=== PATIENT | male | born 1980 | race Caucasian/White ===

== ENCOUNTER 2016-11-11 16:19 | Emergency (ER) | payer OTHER, MEDICAID ==
[2016-11-11 16:31] VITALS: TEMP 98.4
--- NOTE | 2016-11-11 17:07 | CPEKG ---
Heart Rate: 72 RR Interval: 833 P-R Interval: 184 QRSD Interval: 96 QT Interval: 376 QTC Interval: 412 P [place]: 16 QRS [place]: 14 T Wave [place]: 21 EKG Severity - NORMAL ECG - EKG Impression: SINUS RHYTHM Preliminary Awaiting MD Review
[2016-11-11 18:01] VITALS: BP 110/80; PULSE 78; RESP 18; O2SAT 98
[2016-11-11 18:12] LABS: % IMMATURE GRANULYOCYTES 0.4 % (0.0-1.1); ABSOLUTE IMMATURE GRANULOCYTES 0.03 10^3/uL (0.00-0.10); ADD DIFF? NO; ADD MORPH? NO; ADD SCAN? NO; ATYPICAL LYMPHOCYTE FLAG 20 (0-99); FRAGMENT RBC FLAG 10 (0-99); HEMATOCRIT 44.8 % (40.0-51.0); HEMOGLOBIN 15.3 g/dL (13.7-17.5); LEFT SHIFT FLG 0 (0-99); LIPEMIA HEMOLYSIS FLAG 90 (0-99); MEAN CELL HEMOGLOBIN 31.5 pg (27.9-34.1); MEAN CELL HEMOGLOBIN CONCENTR. 34.2 g/dL (32.4-36.7); MEAN CELL VOLUME 92.2 fL (81.5-99.8); MEAN PLATELET VOLUME 10.5 fL (8.7-11.7); PLATELET CLUMPS FLAG 10 (0-99); PLATELET COUNT 220 10^3/uL (150-400); RED BLOOD CELL COUNT 4.86 10^6/uL (4.40-6.38); RED CELL DISTRIBUTION WIDTH 13.4 % (11.5-15.2)
[2016-11-11 18:20] LABS: ANION GAP 12 mEq/L (8-16); CALCIUM 9.3 mg/dL (8.5-10.4); CARBON DIOXIDE 29 mEq/l (22-31); CHLORIDE 98 mEq/L (97-110); CREATININE 0.9 mg/dL (0.7-1.3); GLOMERULAR FILTRATION RATE > 60; GLUCOSE 85 mg/dL (70-100); MAGNESIUM 2.1 mg/dL (1.6-2.3); POTASSIUM 4.7 mEq/L (3.5-5.2); SODIUM 139 mEq/L (134-144)
[2016-11-11 18:32] LABS: TROPONIN I 0.014 ng/mL (0-0.034)
--- NOTE | 2016-11-11 18:32 | DX ---
Chest, PA Upright and Lateral Views, at 5:52 p.m. Clinical History: 36-year-old male with dyspnea and a rapid heart rate. Comparison Study: Chest, dated October 28, 2016. Findings: Telemetry monitoring lead lines are present. There is a mild mid-dextrothoracic scoliosis. 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 Th e cardiac and mediastinal silhouette is normal in size. There is no focal infiltrate, atelectasis, pl eural effusion, peripheral interstitial edema, or pneumothorax. There are some small degenerative ost eophytes associated with the thoracic spine, and a mild ventral wedging deformity at the thoracolumba r junction. The patient's arms obscure portions of the anterior and central mediastinal structures on the lateral view. Impression: Radiographically similar to October 28, 2016.
--- NOTE | 2016-11-11 18:57 | EDPHY ---
H & P Stated Complaint: Abdnormal pulse earlier today Time Seen by Provider: 11/11/16 17:31 HPI/ROS: Chief complaint: Abnormal pulse History of present illness: This is a 36-year-old male who presents to the emergency department reporting an abnormal pulse earlier today. Patient states after drinking approximately 40 oz of coffee he was sitting and eating at [employer] when his heart started to beat harder than usual. He does not feel like it was beating faster than usual it was just beating harder than usual. It only lasted for approximately a minute and then resolved. He denies associated signs or symptoms including no chest pain, no shortness of breath, no cough, no pain or swelling in his legs, no fevers or cold-like symptoms. Review of systems: A 10 point review of systems was obtained and other than described above was negative - Personal History Current Tetanus/Diphtheria Vaccine: Yes Current Tetanus Diphtheria and Acellular Pertussis (TDAP): Yes Tetanus Vaccine Date: 2012 - Medical/Surgical History Hx Asthma: No Hx Chronic Respiratory Disease: No Hx Diabetes: No Hx Cardiac Disease: No Hx Renal Disease: No Hx Cirrhosis: No Hx Alcoholism: No Hx HIV/AIDS: No Hx Splenectomy or Spleen Trauma: No Other PMH: hepatitis c, szchizo affective, bipolar, chronic pain secondary to BCA. HEP-C (recently completed treatment 09/11/16) - Social History Smoking Status: Current some day smoker - Physical Exam Exam: General Appearance: Alert, nontoxic. Eyes: Pupils equal and round no pallor or injection. ENT, Mouth: Mucous membranes moist. Respiratory: There are no retractions, lungs are clear to auscultation. Cardiovascular: Regular rate and rhythm. Gastrointestinal: Abdomen is soft and non tender, no masses, bowel sounds normal. Neurological: Alert. Strength and sensation intact and symmetrical. Skin: Warm and dry, no rashes. Musculoskeletal: Neck is supple non tender. Extremities are symmetrical, there is no edema to the lower extremities, full range of motion. Psychiatric: There is no agitation. Constitutional: Initial Vital Signs Temperature (C) 36.9 C 11/11/16 16:29 Heart Rate 90 11/11/16 16:29 Respiratory Rate 14 11/11/16 16:29 Blood Pressure 120/99 H 11/11/16 16:29 O2 Sat (%) 97 11/11/16 16:29 O2 Delivery Mode Room Air Allergies/Adverse Reactions: ziprasidone HCl [From Geodon] Allergy (Verified 11/11/16 16:28) ziprasidone mesylate [From Geodon] Allergy (Verified 11/11/16 16:28) Home Medications: Medication Instructions Recorded Oxycontin 09/11/16 Vyvanse 09/11/16 Sulfamethox/Tmp 800/160 mg 1 tab PO BID #14 tab 10/18/16 [Bactrim Ds] Albuterol Hfa Anes Only [Proair 2 puffs IH QID PRN #1 mdi 10/28/16 Hfa Anes Only] Azithromycin [Zithromax 250 mg 250 mg PO DAILY #6 tab 10/28/16 tab(RX)] Medical Decision Making - Diagnostics Imaging: Chest x-ray negative for acute findings ED Course/Re-evaluation: Patient discussed with my secondary supervising physician Dr. Berhane White. Patient presents to the emergency department after having a short episode of his heart beating harder than usual today. On presentation patient reports he is asymptomatic. He is afebrile and vital signs are stable. EKG, blood studies and chest x-ray unremarkable. Patient will be discharged home. Home care is discussed. He is referred to Cardiology for recheck. Return precautions are given. Patient voiced understanding and agreement with plan. Differential Diagnosis: Included but not limited to stimulation from substances such as caffeine, anxiety, electrolyte disturbances, cardiac dysrhythmias, unlikely ACS or PE - Data Points Laboratory Results: Laboratory Results 11/11/16 17:50 11/11/16 17:50 11/11/16 17:50 WBC 7.53 10^3/uL (3.80-9.50) RBC 4.86 10^6/uL (4.40-6.38) Hgb 15.3 g/dL (13.7-17.5) Hct 44.8 % (40.0-51.0) MCV 92.2 fL (81.5-99.8) MCH 31.5 pg (27.9-34.1) MCHC 34.2 g/dL (32.4-36.7) RDW 13.4 % (11.5-15.2) Plt Count 220 10^3/uL (150-400) MPV 10.5 fL (8.7-11.7) Neut % (Auto) 61.7 % (39.3-74.2) Lymph % (Auto) 22.6 % (15.0-45.0) [place] % (Auto) 10.0 % (4.5-13.0) Eos % (Auto) 4.5 % (0.6-7.6) Baso % (Auto) 0.8 % (0.3-1.7) Nucleat RBC Rel Count 0.0 % (0.0-0.2) Absolute Neuts (auto) 4.65 10^3/uL (1.70-6.50) Absolute Lymphs (auto) 1.70 10^3/uL (1.00-3.00) Absolute Monos (auto) 0.75 10^3/uL (0.30-0.80) Absolute Eos (auto) 0.34 10^3/uL (0.03-0.40) Absolute Basos (auto) 0.06 10^3/uL (0.02-0.10) Absolute Nucleated RBC 0.00 10^3/uL (0-0.01) Immature Gran % 0.4 % (0.0-1.1) Immature Gran # 0.03 10^3/uL (0.00-0.10) Sodium 139 mEq/L (134-144) Potassium 4.7 mEq/L (3.5-5.2) Chloride 98 mEq/L (97-110) Carbon Dioxide 29 mEq/l (22-31) Anion Gap 12 mEq/L (8-16) BUN 13 mg/dL (7-23) Creatinine 0.9 mg/dL (0.7-1.3) Estimated GFR > 60 Glucose 85 mg/dL (70-100) Calcium 9.3 mg/dL (8.5-10.4) Magnesium 2.1 mg/dL (1.6-2.3) Troponin I 0.014 ng/mL (0-0.034) TSH 1.240 uIU/mL (0.465-4.680) Departure - Departure Disposition: Home, Routine, Self-Care Clinical Impression: Palpitations Condition: Good Instructions: Palpitations (ED) Additional Instructions: Follow-up with Cardiology for continued evaluation and care If symptoms worsen or new symptoms develop return to the emergency department for recheck Referrals: Maddi Carr [Primary Care Provider] - As per Instructions Cesar Perry MD [Medical Doctor] - As per Instructions
== END 2016-11-11 19:22 | disposition home or self-care (01) ==
DX: R00.2 Palpitations (principal); F17.200 Nicotine dependence, unspecified, uncomplicated

== ENCOUNTER → 2016-12-14 | Outpatient (CLI) | payer OTHER, MEDICAID | LOC: BHFA 10:00 | PROVIDERS: ATTEND Internal Medicine Cardiovascular Disease | DX: R00.2 Palpitations (principal); R06.02 Shortness of breath ==

== ENCOUNTER 2017-06-03 15:56 | Emergency (ER) | payer OTHER, MEDICAID ==
[2017-06-03 16:02] VITALS: BP 165/83; PULSE 93; RESP 17; TEMP 98.6; O2SAT 95
--- NOTE | 2017-06-03 16:22 | EDPHY ---
H & P Stated Complaint: redness/erythema l upper arm x 5 days Time Seen by Provider: 06/03/17 16:13 - Personal History Current Tetanus/Diphtheria Vaccine: Yes Tetanus Vaccine Date: 2012 - Medical/Surgical History Hx Asthma: No Hx Chronic Respiratory Disease: No Hx Diabetes: No Hx Cardiac Disease: No Hx Renal Disease: No Hx Cirrhosis: No Hx Alcoholism: No Hx HIV/AIDS: No Hx Splenectomy or Spleen Trauma: No Other PMH: hepatitis c, szchizo affective, bipolar, chronic pain secondary to BCA. HEP-C (recently completed treatment 09/11/16) - Social History Smoking Status: Current some day smoker Constitutional: Initial Vital Signs Temperature (C) 37 C 06/03/17 16:00 Heart Rate 93 06/03/17 16:00 Respiratory Rate 17 06/03/17 16:00 Blood Pressure 165/83 H 06/03/17 16:00 O2 Sat (%) 95 06/03/17 16:00 O2 Delivery Mode Room Air Allergies/Adverse Reactions: ziprasidone HCl [From Geodon] Allergy (Verified 06/03/17 15:59) ziprasidone mesylate [From Geodon] Allergy (Verified 06/03/17 15:59) Home Medications: Medication Instructions Recorded Vyvanse 09/11/16 Oxycodone HCl 06/03/17 Medical Decision Making ED Course/Re-evaluation: CHIEF COMPLAINT: Left arm erythema and pain. HISTORY OF PRESENT ILLNESS: The patient is a 36-year-old male who presents with left arm erythema and pain. He works in [employer] and reports he was probably bitten by an insect. He denies chills, nausea, vomiting, red streaking , or other complaints at this time. He has a history of similar symptoms. REVIEW OF SYSTEMS: A 10 point review of systems was performed and is negative with the exception of the elements mentioned in the history of present illness. PHYSICAL EXAM: HR, BP, O2 Sat, RR. Temp noted General Appearance: Alert, well hydrated, appropriate, and non-toxic appearing. Head: Atraumatic without scalp tenderness or obvious injury Eyes: Pupils equal, round, reactive to light and accommodation, EOMI, no trauma , no injection. Ears: Clear bilaterally, no perforation, normal landmarks Nose: Atraumatic, no rhinorrhea, clear. Throat: There is no erythema or exudates, no lesions, normal tonsils, mucus membranes moist. Neck: Supple, 2+ carotid upstroke, nontender, no lymphadenopathy. Respiratory: No retractions, no distress, no wheezes, and no accessory muscle use. Lungs are clear to auscultation bilaterally. Cardiovascular: Regular rate and rhythm, no murmurs, rubs, or gallops. Bilateral carotid, radial, dorsalis pedis, and posterior tibial pulses intact. Good capillary refill all extremities. Gastrointestinal: Abdomen is soft, nontender, non-distended, no masses, no rebound, no guarding, no peritoneal signs. Musculoskeletal: Normal active ROM of all extremities, atraumatic. Neurological: Alert, appropriate, and interactive. The patient has normal DTRs and non-focal cranial nerves, motor, sensory, and cerebellar exam. Skin: No rashes, good turgor, no nodules on palpation. Large area of blanching indurated erythema to left upper arm. Past medical history: hepatitis c, schizo affective, bipolar, chronic pain secondary to BCA. Past surgical history: Non-contributory. Family history: N/A. Social history: Channel Marketing Coordinator. DIFFERENTIAL DIAGNOSIS: The differential diagnosis includes, but is not limited to: insect bite, cellulitis, abscess. MEDICAL DECISION [id number] year old male presents with an area of large erythema on his left upper arm. The area is indurated but I cannot feel an obvious abscess to drain. I will start him on Bactrim #10 BID and Keflex #10 TID to cover staph and strep and discharge him home. He will be given the first doses here in the ER. He is comfortable with this plan. I offered pain medication but he declined. Departure - Departure Disposition: Home, Routine, Self-Care Clinical Impression: Left arm cellulitis Condition: Good Instructions: Cellulitis (ED) Additional Instructions: Take Bactrim and Keflex as prescribed. This is likely to turn into an abscess at this point and you should return to the ER immediately if you notice this occurring. Return to the emergency department for red streaking, worsening swelling, worsening pain, vomiting chills, or other worsening of condition. Referrals: Maddi Carr [Primary Care Provider] - As per Instructions Report Scribed for: Kory Cameron Report Scribed by: Vasquez Soni Date of Report: 06/03/17 Time of Report: 16:27
[2017-06-03] MEDS ORDERED: CEPHALEXIN 500 MG CAP PO ONE (16:32)
[2017-06-03] MEDS ORDERED: SULFAMETHOX/TMP 800/160 MG 1 TAB PO ONE (16:32)
== END 2017-06-03 16:49 | disposition home or self-care (01) ==
DX: L03.114 Cellulitis of left upper limb (principal); F17.200 Nicotine dependence, unspecified, uncomplicated

== ENCOUNTER 2017-07-23 23:40 | Emergency (ER) | payer OTHER, MEDICAID ==
[2017-07-23 23:52] VITALS: BP 156/100; PULSE 84; RESP 18; TEMP 98.1; O2SAT 100
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
== END 2017-07-24 01:09 | disposition home or self-care (01) ==
DX: K59.01 Slow transit constipation (principal); Z87.891 Personal history of nicotine dependence

== ENCOUNTER 2017-08-03 10:40 | Emergency (ER) | payer OTHER, MEDICAID ==
--- NOTE | 2017-08-03 11:35 | EDPHY ---
H & P Time Seen by Provider: 08/03/17 11:18 HPI/ROS: CHIEF COMPLAINT: "I think I have an infection on my arm " HISTORY OF PRESENT ILLNESS: 36-year-old male history of IV drug use complaining of 1 week of progressively enlarging left distal bicep pain erythema , swelling. Last IV when use at 9:00 a.m. today. He denies: Paresthesia, weakness, fever, chills, syncope, near syncope, headache, chest pain, dyspnea. REVIEW OF SYSTEMS: A ten point review of systems was performed and is negative with the exception of the items mentioned in the HPI PAST MEDICAL & SURGICAL HISTORY: Schizoaffective disorder. Hepatitis C. Personality disorder. IV heroin use SOCIAL HISTORY: last used IV heroin 9:00 a.m. today PHYSICAL EXAM (Prior to examination, patient consented to physical exam, hands were washed and my usual and customary physical exam procedures followed) 1) GENERAL: Well-developed, well-nourished, alert and oriented. Appears to be in no acute distress. 2) HEAD: Normocephalic, atraumatic 3) HEENT: Pupils equal, round, reactive to light bilaterally. Sclera anicteric. 4) NECK: Full range of motion, no meningeal signs. 5) LUNGS: Clear auscultation bilaterally, no wheezes, no rhonchi, no retractions. 6) HEART: Regular rate and rhythm, no murmur, no heave, no gallop. 7) ABDOMEN: No guarding, no rebound, no focal tenderness, 8) MUSCULOSKELETAL: left upper extremity: Fluctuant mass distal bicep measuring 6 cm x 6 cm not proximal to the antecubital fossa. No crepitusMoving all extremities, no focal areas of tenderness, no obvious trauma. No peripheral edema or discoloration. 9) BACK: , no visual or palpable abnormality. 10) SKIN: No rash, no petechiae. 11) Psychiatric: Patient is oriented X 3, there is no agitation. DIFFERENTIAL DIAGNOSIS: in no particular include but limited to abscess, necrotizing fasciitis, cellulitis Smoking Status: Former smoker Constitutional: Initial Vital Signs Temperature (C) 37 C 08/03/17 10:43 Heart Rate 90 08/03/17 10:43 Respiratory Rate 08/03/17 10:43 Blood Pressure 119/86 H 08/03/17 10:43 O2 Sat (%) 94 08/03/17 10:43 O2 Delivery Mode Room Air Allergies/Adverse Reactions: ziprasidone HCl [From Geodon] Allergy (Unknown, Verified 08/03/17 10:42) ziprasidone mesylate [From Geodon] Allergy (Verified 08/03/17 10:42) Home Medications: Medication Instructions Recorded Oxycodone HCl 06/03/17 Cephalexin [Keflex] 500 mg PO QID 10 Days cap 08/03/17 Sulfamethox/Tmp 800/160 mg 1 tab PO BID@1000,2200 10 Days tab 08/03/17 [Bactrim Ds] VYVANSE 08/03/17 MDM/Departure - MDM Procedures: Procedure: Abscess drainage. The patient's abscess was located on the left biceps . I obtained verbal consent from the patient to drain the abscess who was informed about the possibility of bleeding and pain. The abscess was incised with a # 11 Scalpel and a large amount of purulent drainage was expressed. I irrigated the wound and placed some packing. The patient tolerated the procedure well. The procedure was performed by myself. ED Course/Re-evaluation: Patient was also seen and examined by Dr. Lauren Sheth. Doubt necrotizing fasciitis. Afebrile. Trial of outpatient therapy will be obtained with Keflex and Bactrim. Return to the ER in 2 days for recheck - Depart Disposition: Home, Routine, Self-Care Clinical Impression: IV drug user, Abscess of left arm Condition: Good Instructions: Abscess (ED) Additional Instructions: Return to the ER if you develop redness, swelling, discharge, warmth to the wound, red streaks going up your arm , or any other symptoms that concern you. Prescriptions: Cephalexin [Keflex] 500 mg PO QID 10 Days cap Sulfamethox/Tmp 800/160 mg [Bactrim Ds] 1 tab PO BID@1000,2200 10 Days tab Referrals: Return, to the ER in 2 days for recheck [Other] - As per Instructions
[2017-08-03 12:28] VITALS: BP 135/88; PULSE 87; RESP 16; TEMP 96.8; O2SAT 98
== END 2017-08-03 12:28 | disposition home or self-care (01) ==
PROC: 0H9CXZZ Drainage of Left Upper Arm Skin, External Approach (ICD-10-PCS; principal; 2017-08-03)
DX: L02.414 Cutaneous abscess of left upper limb (principal); Z87.891 Personal history of nicotine dependence; Z87.898 Personal history of other specified conditions

== ENCOUNTER 2017-08-05 11:12 | Emergency (ER) | payer OTHER, MEDICAID ==
[2017-08-05 11:19] VITALS: TEMP 98.8
--- NOTE | 2017-08-05 11:44 | EDPHY ---
H & P Time Seen by Provider: 08/05/17 11:33 HPI/ROS: CHIEF COMPLAINT: Here for wound evaluation HISTORY OF PRESENT ILLNESS: 36-year-old male history of hepatitis, history of IV drug use, seen emergency department by self few days ago post IV drug use development of abscess left bicep which is incised, drained, packed, started on dual antibiotic therapy, told to return to the ER today for re-evaluation as today is Monday. States that he is feeling improvement, denies no new erythema denies fever or chills. PHYSICAL EXAM (Prior to examination, patient consented to physical exam, hands were washed and my usual and customary physical exam procedures followed) 1) GENERAL: Well-developed, well-nourished, alert and oriented. Appears to be in no acute distress. 2) HEAD: Normocephalic 3) HEENT: sclera anicteric 4) LUNGS: Breathing comfortably. 5) SKIN: no new erythema 6) MUSCULOSKELETAL: gauze in place, removed. No new areas of fluctuance or drainage. Soft compartments Smoking Status: Former smoker Constitutional: Initial Vital Signs Temperature (C) 37.1 C 08/05/17 11:16 Heart Rate 67 08/05/17 11:16 Respiratory Rate 16 08/05/17 11:16 Blood Pressure 131/71 H 08/05/17 11:16 O2 Sat (%) 96 08/05/17 11:16 O2 Delivery Mode Room Air Allergies/Adverse Reactions: ziprasidone HCl [From Geodon] Allergy (Unknown, Verified 08/05/17 11:15) ziprasidone mesylate [From Geodon] Allergy (Verified 08/05/17 11:15) Home Medications: Medication Instructions Recorded Oxycodone HCl 06/03/17 Cephalexin [Keflex] 500 mg PO QID 10 Days cap 08/03/17 Sulfamethox/Tmp 800/160 mg 1 tab PO BID@1000,2200 10 Days tab 08/03/17 [Bactrim Ds] VYVANSE 08/03/17 MDM/Departure - MDM ED Course/Re-evaluation: Old medical records reviewed, positive culture results from MRSA. I do not think that further incisions and drainages indicated. Recommend follow up on Monday at the [facility] (today is Monday). - Depart Disposition: Home, Routine, Self-Care Clinical Impression: Left bicep abscess Condition: Good Instructions: Abscess (ED) Additional Instructions: keep taking your medication until finished Referrals: [facility],. [Clinic] - 08/07/17
[2017-08-05 12:46] VITALS: BP 128/68; PULSE 65; RESP 14; O2SAT 94
== END 2017-08-05 12:45 | disposition home or self-care (01) ==
DX: L02.414 Cutaneous abscess of left upper limb (principal); Z87.891 Personal history of nicotine dependence

== ENCOUNTER 2017-09-06 05:59 | Emergency (ER) | payer OTHER, MEDICAID ==
[2017-09-06 06:04] VITALS: TEMP 97.9
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
[2017-09-06] MEDS ORDERED: NS 1,000 ML IV ONE (06:17)
[2017-09-06] MEDS ORDERED: LORazepam 2 MG/ML INJ IVP ONE (06:17)
--- NOTE | 2017-09-06 06:25 | CPEKG ---
Heart Rate: 78 RR Interval: 769 P-R Interval: 200 QRSD Interval: 104 QT Interval: 408 QTC Interval: 465 P [place]: 18 QRS [place]: 20 T Wave [place]: 19 EKG Severity - NORMAL ECG - EKG Impression: SINUS RHYTHM Electronically Signed By: Santo Guzmán 06-Sep-2017 07:06:34
--- NOTE | 2017-09-06 06:25 | CPEKG ---
Heart Rate: 78 RR Interval: 769 P-R Interval: 200 QRSD Interval: 104 QT Interval: 408 QTC Interval: 465 P [place]: 18 QRS [place]: 20 T Wave [place]: 19 EKG Severity - NORMAL ECG - EKG Impression: SINUS RHYTHM Electronically Signed By: Santo Guzmán 06-Sep-2017 07:06:34
[2017-09-06 07:10] LABS: PLATELET COUNT 250 10^3/uL (150-400)
[2017-09-06 08:34] VITALS: BP 121/76; PULSE 71; RESP 18; O2SAT 96
== END 2017-09-06 08:34 | disposition home or self-care (01) ==
LOC: EDSEX 05:59
DX: F41.9 Anxiety disorder, unspecified (principal); F17.200 Nicotine dependence, unspecified, uncomplicated; E86.9 Volume depletion, unspecified
CPT/HCPCS: 71010; 93005; 96361; 96374; 99285; J2060

== ENCOUNTER 2017-09-15 15:59 | Emergency (ER) | payer OTHER, MEDICAID ==
[2017-09-15 16:04] VITALS: O2SAT 95
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
[2017-09-15] MEDS ORDERED: SULFAMETHOX/TMP 800/160 MG 1 TAB PO ONE (17:17)
[2017-09-15] MEDS ORDERED: SULFAMET/TMP DS PREPACK#2 BTL TAKEHOME ONE (17:17)
[2017-09-15 18:19] VITALS: BP 129/83; PULSE 85; RESP 18; TEMP 97.9
== END 2017-09-15 18:20 | disposition home or self-care (01) ==
PROC: 0H9CX0Z Drainage of Left Upper Arm Skin with Drainage Device, External Approach (ICD-10-PCS; principal; 2017-09-15)
DX: L02.414 Cutaneous abscess of left upper limb (principal); F17.200 Nicotine dependence, unspecified, uncomplicated

== ENCOUNTER 2017-10-20 18:38 | Emergency (ER) | payer OTHER, MEDICAID ==
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
[2017-10-20] MEDS ORDERED: SULFAMETHOX/TMP 800/160 MG 1 TAB PO ONE (19:26)
[2017-10-20 20:25] VITALS: BP 124/78; PULSE 78; RESP 18; TEMP 97.9; O2SAT 96
== END 2017-10-20 20:25 | disposition home or self-care (01) ==
PROC: 0H9CXZZ Drainage of Left Upper Arm Skin, External Approach (ICD-10-PCS; principal; 2017-10-20)
DX: L02.414 Cutaneous abscess of left upper limb (principal); F17.200 Nicotine dependence, unspecified, uncomplicated; B95.62 Methicillin resistant Staphylococcus aureus infection as the cause of diseases classified elsewhere

== ENCOUNTER 2017-11-10 19:21 | Emergency (ER) | payer OTHER, MEDICAID ==
[2017-11-10 19:50] VITALS: RESP 16
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
[2017-11-10] MEDS ORDERED: SULFAMETHOX/TMP 800/160 MG 1 TAB PO ONE (20:20)
[2017-11-10 20:58] VITALS: BP 132/74; PULSE 84; TEMP 98.4; O2SAT 94
== END 2017-11-10 21:18 | disposition home or self-care (01) ==
PROC: 0H9BXZZ Drainage of Right Upper Arm Skin, External Approach (ICD-10-PCS; principal; 2017-11-10)
DX: L02.413 Cutaneous abscess of right upper limb (principal); F17.200 Nicotine dependence, unspecified, uncomplicated

== ENCOUNTER 2018-01-05 03:17 | Emergency (ER) | payer OTHER, MEDICAID ==
[2018-01-05 03:29] VITALS: BP 140/70; PULSE 75; RESP 17; TEMP 98.8; O2SAT 97
--- NOTE | 2018-01-05 03:33 | EDPHY ---
H & P Stated Complaint: Lump in throat. Time Seen by Provider: 01/05/18 03:26 HPI/ROS: Chief Complaint: Lump in throat HPI: 29-year-old male's presenting this morning after becoming concerned that he might have throat cancer. Patient states he has a dentist a week or 2 ago and they noticed a lesion. This was biopsied and was diagnosed as a wart, positive for human papilloma virus. Patient has become increasingly concerned that he might be developing throat cancer because of the warts. Has an sensation of a lump in his throat tonight. He is able to swallow. He is breathing without difficulty. He is not coughing or spitting up any blood. No nausea or vomiting. He is presenting for evaluation for possible throat cancer. ROS: 10 point Review of Systems is negative except as noted in the HPI. PMH: Chronic back pain Social History: Occasional smoking, no alcohol, no recreational drug use Family History: non-contributory Physical Exam: Gen: Awake, Alert, No Distress HEENT: Nose: no rhinorrhea Eyes: PERRLA, EOMI Mouth: Moist mucosa normal oropharynx, no lesions, uvula is midline, no edema, no erythema, voice is normal Neck: Supple, no JVD, no masses, nontender, no stridor Ext: no edema, non-tender Skin: no rash Neuro: CN II-XII intact, Sensation grossly intact, Strength 5/5 in bilateral upper and lower extremities - Personal History Current Tetanus/Diphtheria Vaccine: Unsure Current Tetanus Diphtheria and Acellular Pertussis (TDAP): Unsure Tetanus Vaccine Date: 2012 - Medical/Surgical History Hx Asthma: No Hx Chronic Respiratory Disease: No Hx Diabetes: No Hx Cardiac Disease: No Hx Renal Disease: No Hx Cirrhosis: No Hx Alcoholism: No Hx HIV/AIDS: No Hx Splenectomy or Spleen Trauma: No Other PMH: Wart removal from throat. - Social History Smoking Status: Current some day smoker Constitutional: Initial Vital Signs Temperature (C) 37.1 C 01/05/18 03:17 Heart Rate 75 01/05/18 03:17 Respiratory Rate 17 01/05/18 03:17 Blood Pressure 140/70 H 01/05/18 03:17 O2 Sat (%) 97 01/05/18 03:17 O2 Delivery Mode Room Air Allergies/Adverse Reactions: ziprasidone HCl [From [email or web address]] Allergy (Unknown, Verified 10/20/17 18:40) ziprasidone mesylate [From Geodon] Allergy (Verified 10/20/17 18:40) Home Medications: Medication Instructions Recorded Oxycodone HCl 06/03/17 VYVANSE 08/03/17 Sulfamethox/Tmp 800/160 mg 1 tab PO BID #14 tab 11/10/17 [Bactrim Ds] Medical Decision Making ED Course/Re-evaluation: Patient presenting this morning concerned he has throat cancer. He has not have any overt signs of masses or difficulties at this time. He was recently diagnosed with human papilloma virus. I have explained that this does not mean he will this is early cancer. He has a normal examination. He has been reassured. Will discharge with follow-up with primary care physician and referral to ENT for further evaluation any concerns. Departure - Departure Disposition: Home, Routine, Self-Care Clinical Impression: Throat discomfort Condition: Good Instructions: Normal Exam (ED) Additional Instructions: Follow up with primary care physician in 3-4 days for further evaluation. Return to the emergency department for difficulty swallowing or difficulty breathing. Referrals: Emmy Carr MD [Medical Doctor] - As per Instructions Clarence Chou MD [Medical Doctor] - As per Instructions
== END 2018-01-05 03:42 | disposition home or self-care (01) ==
LOC: EDUNIT# → EDBD
DX: R07.0 Pain in throat (principal); F17.200 Nicotine dependence, unspecified, uncomplicated

== ENCOUNTER 2018-01-19 23:30 | Emergency (ER) | payer OTHER, MEDICAID ==
--- NOTE | 2018-01-19 23:37 | EDPHY ---
H & P Time Seen by Provider: 01/19/18 23:33 HPI/ROS: CHIEF COMPLAINT: "I want to see if my feet are infected" HISTORY OF PRESENT ILLNESS: 37-year-old homeless male history of IV drug abuse arrives via ambulance requesting that we evaluate his feet for possible infection. He is concerned because he missed a vein in his foot a few days ago. He is experiencing plantar pain. Denies discoloration. He is able to bear weight. He also has multiple lesions and multiple injection sites that he would like me to evaluate. REVIEW OF SYSTEMS: A ten point review of systems was performed and is negative with the exception of the items mentioned in the HPI PAST MEDICAL & SURGICAL HISTORY: No pertinent medical or surgical history SOCIAL HISTORY: History of IV drug use PHYSICAL EXAM (Prior to examination, patient consented to physical exam, hands were washed and my usual and customary physical exam procedures followed) 1) GENERAL: Well-developed, well-nourished, alert and oriented. Appears to be in no acute distress. 2) HEAD: Normocephalic, atraumatic 3) HEENT: Pupils equal, round, reactive to light bilaterally. Sclera anicteric. 4) NECK: Full range of motion, no meningeal signs. 5) LUNGS: Clear auscultation bilaterally, no wheezes, no rhonchi, no retractions. 6) HEART: Regular rate and rhythm, no murmur, no heave, no gallop. 7) ABDOMEN: No guarding, no rebound, no focal tenderness, negative McBurney's, negative Pace's, negative Rovsing's, negative peritoneal sign, 8) MUSCULOSKELETAL: Bilateral lower extremities and feet are examined. He has no focal areas of tenderness bilaterally in his feet or his legs. He has no erythema. No lymphangitic streaking. No crepitus. Soft compartments bilaterally. He has multiple injection sites noted. I do not identify any abscesses. There is no drainage. There is no signs of cellulitis anywhere in his lower extremities that I can visualize. He specifically wants me to reexamine in area on his right proximal calf. This area is not consistent with an abscess, infection, necrotizing fasciitis.. Doubt DVT 9) BACK: No CVA tenderness, no midline vertebral tenderness, no fluctuance, no step-off, no obvious trauma, no visual or palpable abnormality. 10) SKIN: No rash, no petechiae. 11) Psychiatric: Patient is oriented X 3, there is no agitation. DIFFERENTIAL DIAGNOSIS: In no particular include but limited to DVT, abscess, phlebitis, cellulitis, necrotizing fasciitis Smoking Status: Heavy smoker Constitutional: Initial Vital Signs Temperature (C) 36.9 C 01/19/18 23:52 Heart Rate 70 01/19/18 23:52 Respiratory Rate 18 01/19/18 23:52 Blood Pressure 132/76 H 01/19/18 23:52 O2 Sat (%) 96 01/19/18 23:52 O2 Delivery Mode Room Air Allergies/Adverse Reactions: ziprasidone HCl [From Geodon] Allergy (Unknown, Verified 10/20/17 18:40) ziprasidone mesylate [From Geodon] Allergy (Verified 10/20/17 18:40) Home Medications: Medication Instructions Recorded Oxycodone HCl 06/03/17 VYVANSE 08/03/17 Sulfamethox/Tmp 800/160 mg 1 tab PO BID #14 tab 11/10/17 [Bactrim Ds] MDM/Departure - MDM ED Course/Re-evaluation: I re-evaluated this patient with serial examinations. I see no clinical indication of infection such as erythema, foul smell, redness. There is no crepitus. There is no lymphangitic streaking. There is no fluctuance. I see no indication for incision and drainage. Doubt compartment syndrome. I see no indication for antibiotic initiation. I have strongly recommend that he stop using heroin and other injectable substances. Plan will be discharge with usual customary wound precautions instructions. Care of patient under supervision of secondary supervising physician Dr Loo. - Depart Disposition: Home, Routine, Self-Care Clinical Impression: IV drug user Condition: Good Instructions: Narcotic Abuse (ED) Additional Instructions: Do not pick at your skin, stop using IV drugs Referrals: [facility],. [Clinic] - 01/22/18
[2018-01-19 23:54] VITALS: BP 132/76; PULSE 70; RESP 18; TEMP 98.4; O2SAT 96
== END 2018-01-19 23:56 | disposition home or self-care (01) ==
LOC: EDUNIT#
DX: F19.10 Other psychoactive substance abuse, uncomplicated (principal); F17.200 Nicotine dependence, unspecified, uncomplicated

== ENCOUNTER 2018-04-27 03:52 | Emergency (ER) | payer OTHER, MEDICAID ==
[2018-04-27 03:55] VITALS: BP 117/60
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
== END 2018-04-27 04:34 | disposition home or self-care (01) ==
LOC: EDUNIT#
DX: S06.0X0A Concussion without loss of consciousness, initial encounter (principal); F17.200 Nicotine dependence, unspecified, uncomplicated; W22.8XXA Striking against or struck by other objects, initial encounter; Y99.8 Other external cause status; Y93.89 Activity, other specified

== ENCOUNTER 2018-06-28 02:58 | Emergency (ER) | payer OTHER, MEDICAID ==
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
[2018-06-28 03:52] VITALS: BP 115/58
--- NOTE | 2018-06-28 07:05 | CPEKG ---
Test Reason : OPEN Blood Pressure : / mmHG Vent. Rate : 067 BPM Atrial Rate : 067 BPM P-R Int : 190 ms QRS Dur : 091 ms QT Int : 405 ms P-R-T Axes : 019 026 016 degrees QTc Int : 428 ms Sinus rhythm Probable left atrial enlargement Confirmed by Santo Guzmán ([id number]) on 06/28/2018 7:05:12 AM Referred By: Confirmed By:Santo Guzmán
== END 2018-06-28 04:09 | disposition home or self-care (01) ==
PROC: 0J9M3ZZ Drainage of Left Upper Leg Subcutaneous Tissue and Fascia, Percutaneous Approach (ICD-10-PCS; principal; 2018-06-28)
DX: L02.416 Cutaneous abscess of left lower limb (principal); L03.116 Cellulitis of left lower limb; R00.2 Palpitations

== ENCOUNTER 2018-07-20 13:11 | Emergency (ER) | payer OTHER, MEDICAID ==
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
[2018-07-20] MEDS ORDERED: IBUPROFEN 600 MG TAB PO ONE (14:27)
[2018-07-20] MEDS ORDERED: SULFAMETHOX/TMP 800/160 MG 1 TAB PO ONE (14:27)
[2018-07-20 14:49] VITALS: BP 123/74
== END 2018-07-20 14:58 | disposition home or self-care (01) ==
PROC: 0H9LXZZ Drainage of Left Lower Leg Skin, External Approach (ICD-10-PCS; principal; 2018-07-20)
DX: L02.415 Cutaneous abscess of right lower limb (principal)

== ENCOUNTER 2018-09-11 02:43 | Emergency (ER) | payer OTHER, MEDICAID ==
[2018-09-11 02:51] VITALS: BP 120/75
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
== END 2018-09-11 04:24 | disposition home or self-care (01) ==
DX: F41.9 Anxiety disorder, unspecified (principal); F25.9 Schizoaffective disorder, unspecified; F31.9 Bipolar disorder, unspecified; Z87.891 Personal history of nicotine dependence

== ENCOUNTER 2018-10-13 00:34 | Emergency (ER) | payer OTHER, MEDICAID ==
[2018-10-13 00:43] VITALS: BP 132/68
== END 2018-10-13 01:00 | disposition left against medical advice (07) ==
DX: Z53.21 Procedure and treatment not carried out due to patient leaving prior to being seen by health care provider (principal)

== ENCOUNTER 2018-10-15 02:31 | Emergency (ER) | payer OTHER, MEDICAID ==
[2018-10-15 02:39] VITALS: BP 123/58
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
--- NOTE | 2018-10-15 04:13 | CPEKG ---
Test Reason : OPEN Blood Pressure : / mmHG Vent. Rate : 065 BPM Atrial Rate : 064 BPM P-R Int : 187 ms QRS Dur : 101 ms QT Int : 404 ms P-R-T Axes : 015 049 035 degrees QTc Int : 421 ms Sinus rhythm Confirmed by Berhane Loo ([id number]) on 10/15/2018 4:13:32 AM Referred By: Confirmed By:Berhane Loo
== END 2018-10-15 03:06 | disposition home or self-care (01) ==
DX: R07.9 Chest pain, unspecified (principal); F25.9 Schizoaffective disorder, unspecified; F31.9 Bipolar disorder, unspecified; G89.29 Other chronic pain; Z87.891 Personal history of nicotine dependence

== ENCOUNTER 2018-11-26 16:56 | Emergency (ER) | payer OTHER, MEDICAID ==
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
[2018-11-26 18:25] LABS: PLATELET COUNT 204 10^3/uL (150-400)
[2018-11-26 19:03] VITALS: BP 135/84
== END 2018-11-26 18:50 | disposition home or self-care (01) ==
DX: R60.9 Edema, unspecified (principal); B35.3 Tinea pedis

== ENCOUNTER 2018-12-24 16:02 | Emergency (ER) | payer OTHER, MEDICAID ==
[2018-12-24 16:09] VITALS: BP 110/66
--- NOTE | 2018-12-24 16:37 | EDPHY ---
H & P Smoking Status: Light smoker Time Seen by Provider: 12/24/18 16:17 HPI/ROS: CHIEF COMPLAINT: "My tooth hurts, I need penicillin" HISTORY OF PRESENT ILLNESS: 38-year-old male history of schizoaffective disorder, poor dentition complaining of odontalgia of his left maxillary molar for the past 3 days. No trismus no drooling. No fever no chills. No otalgia. No nausea or vomiting. No flu-like symptoms. PHYSICAL EXAM (Prior to examination, patient consented to physical exam, hands were washed and my usual and customary physical exam procedures followed) 1) GENERAL: Well-developed, well-nourished, alert and oriented. Appears to be in no acute distress. 2) HEAD: Normocephalic 3) HEENT: sclera anicteric . Symmetrical faces. Nasolabial folds are symmetrical. Poor dentition. No trismus no drooling. Tender to percussion tooth number 14. No evidence of apical abscess. Sublingual space is soft with no induration. No evidence of Krishna's angina. Submental, submandibular spaces are soft no erythema no induration. 4) LUNGS: Breathing comfortably. (Rocio,Nati Savanah) Constitutional: Initial Vital Signs Temperature (C) 36.6 C 12/24/18 16:06 Heart Rate 72 12/24/18 16:06 Respiratory Rate 18 12/24/18 16:06 Blood Pressure 110/66 12/24/18 16:06 O2 Sat (%) 98 12/24/18 16:06 O2 Delivery Mode Room Air Allergies/Adverse Reactions: No Known Allergies Allergy (Verified 12/24/18 16:05) Home Medications: Medication Instructions Recorded Oxycodone HCl 06/03/17 VYVANSE 08/03/17 Amoxicillin/Clavulanate Pot 875 mg PO BID #14 tab 12/24/18 [Augmentin 875 mg tab] MDM/Departure - MDM ED Course/Re-evaluation: Patient has no evidence of deep space infection, apical abscess, Krishna's angina. I offered dental nerve block which he declines. Today is presents Day holiday. I recommend he follow up either [facility] or with [facility] aid this week. Given prescription for Augmentin. Patient feels comfortable being discharged. All questions and concerns addressed by myself. Patient given my usual and customary discharge precautions and instructions regarding their clinical impression. Care of patient under supervision of [ secondary] supervising physician Dr Mcfarland (RocioNati) The patient was evaluated and managed by the physician night assistant. I have reviewed this chart and I agree with the findings and plan of care as documented , as indicated by my signature. I am the secondary supervising physician. ( Munira Mcfarland) - Depart Disposition: Home, Routine, Self-Care Clinical Impression: Odontalgia Condition: Good Instructions: Toothache (ED) Additional Instructions: Return to the ER immediately if you cannot swallow, have drooling, fevers, neck stiffness, cannot open your jaw, or any other symptoms that concern you. Prescriptions: Amoxicillin/Clavulanate Pot [Augmentin 875 mg tab] 875 mg PO BID #14 tab Referrals: [facility] [Outside] - 1-2 days without fail
== END 2018-12-24 16:44 | disposition home or self-care (01) ==
DX: K08.89 Other specified disorders of teeth and supporting structures (principal)

== ENCOUNTER 2018-12-27 04:48 | Emergency (ER) | payer OTHER, MEDICAID ==
[2018-12-27 04:58] VITALS: BP 131/76
[2018-12-27] MEDS ORDERED: PERMETHRIN 5% 60 GM CREAM TP ONE (05:02)
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
== END 2018-12-27 05:28 | disposition home or self-care (01) ==
DX: L29.9 Pruritus, unspecified (principal)

== ENCOUNTER 2019-01-11 17:59 | Emergency (ER) | payer OTHER, MEDICAID ==
[2019-01-11 18:08] VITALS: BP 136/66
--- NOTE | 2019-01-11 19:46 | EDPHY ---
General Time Seen by Provider: 01/11/19 19:43 Narrative: CLINICAL IMPRESSION: Dental pain, right foot pain ASSESSMENT/PLAN: Patient is a 38-year-old male who is well known to our department, significant history of schizoaffective disorder who presents for ongoing dental pain and left foot pain. Patient is afebrile on arrival, he was in no acute distress, not toxic appearing. Patient with recent extraction tooth 12 as well as tooth 24, sites are clean, mucosa is pink without evidence of open wound or abscess. His right foot examination revealed tenderness on the pad of his forefoot without obvious deformity or abnormality, no erythema or calor. History and physical examination consistent with overall poor dentition, extraction site pain and right foot pain. Patient was handling secretions normally, there was no obvious swelling to face, no trismus, no angioedema or evidence of airway compromise. Patient was offered Tylenol and ibuprofen however refused. Patient does have a dentist with plans to follow up 1st thing next week. He is also well established with his primary care provider, he will call to schedule an appointment for follow-up on his left foot pain. There were no findings to suggest ANUG, Krishna's angina, facial abscess or cellulitis , dental abscess, sepsis, traumatic foot injury, foot cellulitis, gout or neurovascular compromise. Strict return precautions discussed- patient to return to the ED for increased or unmanageable pain, bleeding, redness, drainage , swelling, development of fever, facial swelling, facial redness or for any other new, worsening or worrisome symptoms. Patient verbalizes understanding and agrees with the plan. DIFFERENTIAL DX: Differential diagnosis including but not limited to and in no particular order cellulitis, dental abscess, sepsis, traumatic foot injury, gout, neurovascular compromise CHIEF COMPLAINT: "I have a dental infection and my right foot hurts" HPI: Patient is a 38-year-old male who is well known to our department, significant history of schizoaffective disorder who presents for ongoing dental pain and right foot pain. Patient endorses ongoing issues with his overall dentition, seen and evaluated last month for dental infection. Has since been evaluated by his dentist where 2 teeth were extracted last week. Patient felt that he was doing well after his extractions until earlier today when he felt the blood clot move from the upper extraction site. He feels that he has infection at this site as well as the lower extraction site. He feels that it is going up into his face. He denies any fevers, chills, nausea or vomiting. He denies any oral swelling or difficulty swallowing. He finished penicillin as previously instructed. He has plans to return to his dentist next week for additional extractions. Patient with a significant periodontal history that will eventually require bone grafting and implants. Patient also reports today he started to experience some right foot pain. He has been walking a lot, denies any trauma. He feels like there is fluid under the pad of his foot. He is unable to visualize any abnormality, denies any open wounds. There has been no redness or warmth. No history of similar episodes. PMH: Schizoaffective disorder, poor dentition Family History: Not contributory Social History: Homeless, occasional smoker, denies any illicit drug use REVIEW OF SYSTEMS: All other systems negative Constitutional: No fever, no chills, appetite change. Eyes: No discharge, vision change ENT: Dental pain. No sore throat, congestion, ear pain. Cardiovascular: No chest pain, no palpitations. Respiratory: No cough, no shortness of breath. Gastrointestinal: No abdominal pain, no vomiting, diarrhea. Genitourinary: No hematuria, dysuria, flank pain, pelvic pain Musculoskeletal: Right foot pain. No back pain, joint swelling, joint pain, myalgias. Skin: No rashes, color change. Neurological: No headache, dizziness, weakness. PHYSICAL EXAM: General Appearance: Unkempt, no acute distress and not toxic-appearing. HENT: Normocephalic, atraumatic. There is no appreciable facial swelling or erythema. Bilateral external ears are normal. Bilateral tympanic membranes are normal with pearly lai reflex. Nares are clear, mucosa is pink. Oropharynx is clear, uvula is midline. There is no tonsillar enlargement or exudate. Sublingual spaces soft, nontender and without induration. His phonation is normal, there is no oral edema. Recent extraction sites at tooth 12 and 24, mucosa pink without evidence of gaping wound. No fluctuance, no evidence of abscess. Overall remaining dentition is poor. Eyes: PERRLA, no acute vision change, nystagmus, swelling, discharge, pain or photosensitivity. Conjunctiva pink, no pallor or injection Neck: Supple, nontender, no lymphadenopathy, no midline pain, FROM, no meningismus. Respiratory: There are no retractions, lungs are clear to auscultation. Cardiac: Regular rate and rhythm, no murmurs or gallops. Gastrointestinal: Abdomen is soft, nontender, bowel sounds normal, no masses/ hernia, no rigidity, guarding or focal peritoneal findings. Neurological: Alert and oriented x 3, CN 2-12 grossly intact, normal gait no ataxia, DTR's intact, normal sensation and strength Skin: Warm, dry, no rashes, no nodules on palpation. Musculoskeletal: Extremities are symmetrical, full range of motion, deformity, swelling, or erythema. Specifically patient points to the pad of his right foot. There is a large callus at this location, there is no erythema or calor. There are no open wounds. There is no fluctuance. Two point discrimination is intact distally at all digits. Patient has mild tenderness to palpation however he is able to bear weight without difficulty. Psychiatric: Patient is oriented X 3, there is no agitation. MEDICAL DECISION MAKING: Patient was seen independently. Secondary supervising physician at time of evaluation was Dr. Fernandes, he did not evaluate this patient. Diagnosis: Dental pain, right foot pain. New, requires workup Summary: See Assessment and Plan for summary of ED visit Clinical lab tests: Not applicable. Independent visualization of images, tracing, or specimens: Not applicable. Decision to obtain medical records or history from someone other than the patient: Yes Review / Summarize previous medical records: Yes Patient Progress: Stable, discharge. - History Smoking Status: Light smoker - Objective Vital Signs: Initial Vital Signs Temperature (C) 36.8 C 01/11/19 18:06 Heart Rate 82 01/11/19 18:06 Respiratory Rate 17 01/11/19 18:06 Blood Pressure 136/66 H 01/11/19 18:06 O2 Sat (%) 95 01/11/19 18:06 O2 Delivery Mode Room Air Allergies/Adverse Reactions: No Known Allergies Allergy (Verified 01/11/19 18:05) Home Medications: Medication Instructions Recorded Oxycodone HCl 06/03/17 VYVANSE 08/03/17 Departure - Departure Disposition: Home, Routine, Self-Care Clinical Impression: Pain, dental, Right foot pain Condition: Good Instructions: Toothache (ED), Metatarsalgia (DC) Additional Instructions: DISCHARGE INSTRUCTIONS FROM YOUR DOCTOR Thank you for visiting our emergency department today. Please keep in mind that discharge from the emergency department does not mean that there is nothing wrong - it simply means that we have not identified an emergency condition that requires further evaluation or treatment in the hospital. You should always plan to follow up with primary care for re-evaluation of your condition in the next 2-3 days. If you have been referred to a specialist, please call as soon as possible ( today or tomorrow) to schedule your follow up appointment at the appropriate time; please call your dentist on Monday as we discussed for follow-up. [place] your teeth often. Gargle. Floss. Take good care of your teeth. For pain control: You may take Tylenol, I recommend 500-1000 mg every 6-8 hours as needed. Take with food and a full glass of water. Stop taking if this is upsetting her stomach. Do not exceed 4000 mg in a 24 hr period. You may also take ibuprofen, recommend 400 mg every 6 hr. Take with food and a full glass of water. Stop taking if this upsets her stomach. Do not exceed 2400 mg in a 24 hr period. Schedule with a dentist to be seen as soon as possible, EARLY NEXT WEEK. Return for increased or unmanageable pain, bleeding, redness, drainage, swelling , development of fever, chills, vomiting, rash, difficulty breathing or swallowing, facial swelling, facial redness, facial numbness, tingling, weakness , or droop, swelling of the tongue, throat, or floor of the mouth, chest pain, shortness of breath, neck pain, neck stiffness, drooling, vomiting, rash, dizziness, fainting, or for any other new, worsening or worrisome symptoms. People present with illnesses and injuries in different ways, and it is always possible that we have missed something. You may always return for re-evaluation if symptoms worsen or if they are not improving or if you develop new/different symptoms. Again, thank you for choosing our emergency department. We hope that you feel better. [facility] has walk-in appointments for the homeless at the following days/locations. No appointment is needed. Monday 8-10 am @ [facility] 11 AM-1 PM @ [facility] Monday 8-10:30 AM @ [facility] Monday 8-10 AM @ [facility] 2-4 PM @ [facility] Monday 8-10 AM @ [facility] Referrals: [facility],. [Clinic] - As per Instructions
== END 2019-01-11 19:51 | disposition home or self-care (01) ==
DX: K08.89 Other specified disorders of teeth and supporting structures (principal); M79.671 Pain in right foot

== ENCOUNTER 2019-04-09 21:58 | Emergency (ER) | payer OTHER, MEDICAID | END 2019-04-09 22:57 | disposition home or self-care (01) ==